=== PATIENT | female | born 1975 | race Caucasian/White ===

== ENCOUNTER 2016-10-16 07:16 | Observation (INO) | payer BC ==
[~2016-10-16] VITALS: Ht 170.2 cm; Wt 63.6 kg
--- NOTE | ~2016-10-16 | CON ---
PATIENT'S NAME: BACILIO HAYWOOD [facility] AGE: 41 Y [address] ROOM: [place] [address] LOCATION: [facility] [place] ADMIT DATE: 10/16/2016 Consultation DISCHARGE DATE: FAMILY PHYSICIAN: PHUONG TONG MD ATTENDING PHYSICIAN: PHUONG TONG DATE OF CONSULTATION: 10/16/2016 CHIEF COMPLAINT: Right flank pain. HISTORY OF PRESENT ILLNESS: The patient is a pleasant 41-year-old female, who presented with right flank pain to the emergency room. She ultimately underwent a CT scan and was found to have a 3.5 mm distal right ureteral stone approximately 1-2 cm from her ureterovesical junction. She was not doing well with pain control and was admitted by her primary care provider, Dr. Orellana for observation. She does report previous history of kidney stone having passed a kidney stone on her own on the right side approximately six years ago. She denies having to undergo any previous intervention for nephrolithiasis. She had denied any nausea or vomiting. Her white blood cell count was 7.5 and creatinine level 0.7. Her urinalysis was negative for nitrites and bacteria. She has been straining her urine since hospital admission and has not yet retrieved a stone yet. She feels like her pain has subsided this afternoon and is wondering if she has passed the stone yet. She denies any recent history of urinary tract infection or gross hematuria. The patient has no further questions or concerns at this time. PAST MEDICAL HISTORY: 1. History of nephrolithiasis. 2. Seasonal allergies. PAST SURGICAL HISTORY: Denies any significant prior surgery. FAMILY HISTORY: Denies any known family history of genitourinary abnormalities. SOCIAL HISTORY: The patient is and denies any tobacco use. ALLERGIES: NO KNOWN DRUG ALLERGIES. MEDICATIONS: PATIENT'S NAME: BACILIO HAYWOOD [facility] AGE: 41 Y [address] ROOM: [place] [address] LOCATION: [facility] [place] ADMIT DATE: 10/16/2016 Consultation DISCHARGE DATE: FAMILY PHYSICIAN: PHUONG TONG MD ATTENDING PHYSICIAN: PHUONG TONG See hospitalization medication reconciliation. REVIEW OF SYSTEMS: A full 10+ point review of systems was performed with pertinent positive and negative findings included in history of present illness. Of note, she had denied any vomiting. She denies any history of chest pain. She denies any history of asthma. She is not diabetic. She denies any fevers or chills. Again, all other systems were reviewed and are otherwise negative. PHYSICAL EXAMINATION: VITAL SIGNS: Temperature 98 degrees Fahrenheit, pulse 64, blood pressure 101/65, respiratory rate 16, oxygen saturation 99% on room air. CONSTITUTIONAL: The patient is in no acute distress and she is awake and oriented. HEENT: Extraocular muscles intact. Mucous membranes moist. No drainage per ears and nose. CARDIAC: Good peripheral perfusion. No tachycardia. RESPIRATORY: No audible wheezing. ABDOMEN: Soft, nontender, and nondistended. MUSCULOSKELETAL: Moves all extremities. NEUROLOGIC: No focal deficits noted. HEMATOLOGIC: No active sites of bruising or bleeding. PSYCHIATRIC: Normal affect and answers questions appropriately. IMAGING: I personally reviewed her CT scan images consistent with findings noted above in history of present illness. IMPRESSION: 1. 3.5 mm right distal ureteral stone. 2. Recurrent nephrolithiasis. PLAN: I had a long discussion today with the patient regarding my findings. We discussed her treatment options for the distal ureteral calculus including observation with trial of passage versus intervention with ureteroscopy, laser lithotripsy, and stent placement. At this point, the patient is doing well with pain control and would like to continue with a trial of stone passage and we will continue to have her strain her urine and she is able to pass the stone yet this evening, then from my standpoint, she would be fine for discharge home if her pain is well controlled and she is tolerating p.o. intake. We will give her a trial of oral intake this evening and she is fine to have dinner and we will check back in on her in the morning. If she continues to have episodes of severe pain, we would likely need to intervene tomorrow with ureteroscopy with possible laser lithotripsy and stent PATIENT'S NAME: BACILIO HAYWOOD [facility] AGE: 41 Y [address] ROOM: [place] [address] LOCATION: [facility] [place] ADMIT DATE: 10/16/2016 Consultation DISCHARGE DATE: FAMILY PHYSICIAN: PHUONG TONG MD ATTENDING PHYSICIAN: PHUONG TONG. I did briefly discuss the risks, benefits, indications, and alternatives of surgical intervention for her ureteral calculus. Her questions and concerns were addressed and she has no further at this time. NELSON LINARES MD GP/kari /[id number] d: 10/16/16 2313 t: 10/17/16 1029, CONSULTATION REPORT
--- NOTE | ~2016-10-16 | OR ---
PATIENT'S NAME: BACILIO HAYWOOD [facility] AGE: 41 Y [address] ROOM: [address] [address] [place] [facility] [place]: 10/16/2016 OR/Procedure Report DISCHARGE DATE: 10/17/2016 FAMILY PHYSICIAN: Robbie Olson MD ATTENDING PHYSICIAN: Nelson Rodriguez SURGEON: Nelson Rodriguez MD [employer]: DATE OF PROCEDURE: 10/17/2016 PREOPERATIVE DIAGNOSIS: Right distal ureteral calculus. POSTOPERATIVE DIAGNOSIS: Right distal ureteral calculus. OPERATIVE PROCEDURES: 1. Right ureteroscopy with laser lithotripsy. 3. Right ureteroscopic stone extraction. 4. Cystoscopy with placement of indwelling right ureteral stent. ANESTHESIA ADMINISTERED: General. INDICATIONS FOR PROCEDURE: The patient is a pleasant 41-year-old female, who had presented with right flank pain and underwent a CT scan, where she was found to have a 3.5-mm distal right ureteral stone approximately 1 cm to 2 cm from her ureterovesical junction. She was not doing well with pain control, and was admitted by her primary care provider for observation. The patient was discussed her treatment options and ultimately opted for intervention. DESCRIPTION OF OPERATION: The patient was brought back to the Operating Room, where she was placed on the OR table in the supine position. A surgical time- out was called where patient identification, surgical site, and procedure were then verified. We also did verify that the patient received an IV antibiotic prior to beginning the procedure. After undergoing successful administration of general anesthesia, the patient was then moved and placed in a low- lithotomy position, where her genital area was then prepped and draped in the usual sterile fashion. I then began by advancing a rigid cystoscope easily into the patient's urinary bladder. Her urethra was within normal limits. Upon entering her bladder, a full escobedo cystoscopy was performed, and her bladder was negative for any bladder tumors, cellules, or diverticula. Her ureteral orifices were noted to be in their orthotopic location. I then carefully advanced a sensor guidewire cannulating her right ureteral orifice, and advanced the wire up to her right renal pelvis. I then removed the cystoscope. Then, alongside the wire, I advanced a semi-rigid ureteroscope. I did come across the distal ureteral PATIENT'S NAME: BACILIO HAYWOOD [facility] AGE: 41 Y [address] ROOM: [address] [address] LOC[place]: [facility] [place]MIT DATE: 10/16/2016 OR/Procedure Report DISCHARGE DATE: 10/17/2016 FAMILY PHYSICIAN: Rbobie Olson MD ATTENDING PHYSICIAN: Nelson Rodriguez stone, which did appear to be too large to extract without fragmentation, and so I used the holmium laser fiber to carefully fragment the stone into smaller fragments. I did use the stone basket to retrieve several of the fragments, which were sent for a stone analysis. On final inspection, there was no evidence of any residual fragments nor was there any evidence of a ureteral injury. Then, over the wire, I advanced a 4.8-Djiboutian multi-length ureteral stent, deploying it and noting a good curl fluoroscopically in the patient's right renal collecting system, as well as a good curl visually in the patient's bladder. I then emptied the patient's bladder. POSTOPERATIVE CONDITION: The patient was then taken out of the lithotomy position, where she was then awoken from general anesthesia, transferred to the recovery bed, and transported to the Recovery Room in good condition. COMPLICATIONS: None. DRAINS: Indwelling 4.8-Djiboutian multi-length ureteral stent. FOLLOWUP PLAN: We will observe the patient today, and if her pain is well controlled, we will get her discharged home following the procedure. NELSON RODRIGUEZ MD GP/modl /[id number] d: 11/03/162131 t: 11/04/16 0806, OPERATIVE SUMMARY
--- NOTE | ~2016-10-16 | HP ---
PATIENT'S NAME: BACILIO HAYWOOD [facility] AGE: 41 Y [address] ROOM: [place] [address] LOCATION: [facility] [place] ADMIT DATE: 10/16/2016 History & Physical DISCHARGE DATE: FAMILY PHYSICIAN: PHUONG TONG MD ATTENDING PHYSICIAN: PHUONG TONG DATE OF SERVICE: CHIEF COMPLAINT: Right flank pain. HISTORY OF PRESENT ILLNESS: Bacilio Haywood presented to the emergency room today, the day of admission, complaining of right flank and right lower quadrant abdominal pain. She was evaluated there by Dr. Inés Caballero, ER physician. I am the patient's primary care physician in the outpatient arena. I was called by Dr. Caballero after the patient was evaluated in the emergency room and found to have, by physical exam, lab, urine, and CT scan of the abdomen and pelvis, a renal stone present in her distal right ureter. She required a fair amount of pain medicine just to get her pain under control. She is admitted to the hospital at this time for pain management, and we will obtain urologic consultation. I see the patient at approximately 12:35 p.m. the day of admission up on the floor, [address], and she is resting quietly with her pain better controlled than in the emergency room. She has had no nausea or vomiting. She does give a remote history of having a renal stone that she passed on her own in the past. At this point, I have told her we will keep her n.p.o. and give her IV fluids. She had Flomax in the emergency room. She will be seen later in the day by Dr. Seamus Rodriguez, urologist. CURRENT MEDICATIONS: See nurse's notes. ALLERGIES: SEE NURSE'S NOTES. PREVIOUS OPERATIONS: See old records. SOCIAL HISTORY: She does not smoke. FAMILY HISTORY: Negative for problems with general anesthesia or bleeding disorder. IMMUNIZATION STATUS: PATIENT'S NAME: BACILIO HAYWOOD [facility] AGE: 41 Y [address] ROOM: [place] [address] LOCATION: [facility] [place] ADMIT DATE: 10/16/2016 History & Physical DISCHARGE DATE: FAMILY PHYSICIAN: PHUONG TONG MD ATTENDING PHYSICIAN: PHUONG TONG Up-to-date for age. REVIEW OF SYSTEMS: HEENT: No fever. No chills. No weight loss. No sore throat. ENDOCRINE: She is not diabetic. No history of thyroid disease. LUNGS: No history of asthma. HEART: No history of chest pain, palpitations, heart murmur, or hypertension. GASTROINTESTINAL: She is somewhat nauseated. No history of active ulcer disease, gallbladder problems, or hepatitis. GENITOURINARY: As above. EXTREMITIES: Negative. NEUROLOGIC: Negative. PHYSICAL EXAMINATION: VITAL SIGNS. Noted. GENERAL: She is alert; lying in bed; oriented to person, place, and time; and competent. She does have more narcotic onboard, however. HEENT: Pupils reactive to light. TMs not visualized. Posterior pharynx clear. Mucous membranes are slightly dry. NECK: Unremarkable. LUNGS: Clear. HEART: No murmur, gallop, or rub. ABDOMEN: Benign. EXTREMITIES: Unremarkable. NEUROLOGIC: Grossly intact. PELVIC/RECTAL: Not done. ASSESSMENT: 1. Right flank and right lower quadrant abdominal pain secondary to obstructed distal right ureter secondary to renolithiasis. 2. Prior history of renal stone. PLAN: As above. MD MARCELLE MOYER/kari /[id number] D: 357 T: HISTORY & PHYSICAL
--- NOTE | ~2016-10-16 | ER ---
PATIENT'S NAME: BACILIO HAYWOOD [facility] AGE: 41 Y [address] ROOM: [place] [address] [place] [facility] [place]: 10/16/[place] ER/Outpatient Report DISCHARGE DATE: FAMILY PHYSICIAN: PHUONG TONG MD ATTENDING PHYSICIAN: PHUONG TONG TIME OF ARRIVAL: 0716 hours. TIME SEEN: 0737 hours. IDENTIFICATION: A 41-year-old female. CHIEF COMPLAINT: Right-sided flank pain. HISTORY OF PRESENT ILLNESS: The patient developed right-sided flank pain at about 05:00 a.m. this morning. She is extremely uncomfortable with constant sharp, stabbing pain associated with diaphoresis, nausea, and vomiting. She feels lightheaded from the pain. She has had previous kidney stone several years ago, that did pass on its own. She had no dysuria. No hematuria. She denies any chance of test, but is still having. ALLERGIES: NO KNOWN DRUG ALLERGIES. MEDICATIONS: No current medications. MEDICAL PROBLEMS: Previous history of kidney stones. SOCIAL HISTORY: The patient is , lives here in [place]. Tobacco use, denies. Alcohol use, denies. Drug use, denies. REVIEW OF SYSTEMS: All systems were reviewed and negative other than what is noted in the HPI. PHYSICAL EXAMINATION: VITAL SIGNS: Height 5 feet 7 inches and weight 64.7 kg. Blood pressure 126/76, pulse 82, respirations 18, temperature 98.3, and saturations 98% on PATIENT'S NAME: BACILIO HAYWOOD [facility] AGE: 41 Y [address] ROOM: [place] [address] [place] [facility] [place]: 10/16/2016 ER/Outpatient Report DISCHARGE DATE: FAMILY PHYSICIAN: PHUONG TONG MD ATTENDING PHYSICIAN: PHUONG TONG room air. GENERAL: A 41-year-old female, in obvious distress with 10/10 pain. HEENT: Head: Normocephalic atraumatic. Ears: TMs not visualized. Eyes: Pupils are equal and reactive to light and accommodation. Extraocular movements intact. Nose: Mucosa pink. No lesions or drainage. Mouth: No lesions. Pharynx benign. NECK: Supple. No lymphadenopathy. LUNGS: Clear to auscultation. HEART: Regular rate and rhythm. ABDOMEN: Soft, nondistended, and nontender. SKIN: Pale and diaphoretic. No skin rashes. EXTREMITIES: Motor strength 5/5 throughout. Sensation is intact to light touch. She has slight right-sided CVA tenderness. LABORATORY DATA: UA: Specific gravity 1.020, pH 6, rare white cells, 0 to 10 red cells, 10 to 20 epithelial cells, and negative bacteria. Urine hCG negative. Chemistry panel is all within normal limits. Creatinine 0.7. CBC also within normal limits. EMERGENCY DEPARTMENT COURSE: An IV was initiated. The patient was given 1 L of normal saline. Zofran 4 mg IV, Toradol 15 mg IV, fentanyl a total of 100 mcg IV, Amanda 5/325 p.o., and Dilaudid 0.5 mg IV. Her pain improved for a while, but then returned again 10/10. CT scan, stone protocol reveals a 3.5 mm obstructing right UVJ stone, mild hydronephrosis. She has indeterminate liver lesions. She has had previous CT scan elsewhere and Radiology was going to try and find her CAT scan from [place] in 2010. She did have an ultrasound of her abdomen in 2011 that was obtained for comparison. There were multiple liver lesions present on that ultrasound, felt most likely hemangiomas, given echogenicity characteristics. The lesions are almost certainly benign hemangiomas. If they can obtain the scan from [place] from 2010, they will compare and addend the report. IMPRESSION AND PLAN: 1. Kidney stone with persistent pain. The patient will be admitted per Dr. Tong for pain control and Urology consultation. 2. Liver lesions, most certainly benign hemangiomas, we are awaiting Radiology attempts to get prior CT from [place] from 2010 for comparison. Further recommendations based on that comparison. ALEKSANDR CHAUDHRY MD PATIENT'S NAME: BACILIO HAYWOOD [facility] AGE: 41 Y [address] ROOM: [place] [address] [place] [facility] [place]: 10/16/2016 ER/Outpatient Report DISCHARGE DATE: FAMILY PHYSICIAN: PHUONG TONG MD ATTENDING PHYSICIAN: PHUONG TONG CAR/modl /[id number] d: 10/16/16 1827 t: 10/19/16 0749, OUTPATIENT REPORT
[2016-10-16 07:36] LABS: BILIRUBIN URINE NEGATIVE (NEGATIVE); BLOOD URINE 10 /UL (NEGATIVE); COLOR URINE YELLOW (YELLOW); GLUCOSE URINE NEGATIVE (NEGATIVE); KETONE URINE NEGATIVE (NEGATIVE); LEUKOCYTES URINE 25 /UL (NEGATIVE); NITRITE URINE NEGATIVE (NEGATIVE); PROTEIN URINE 15 mg/dL (NEGATIVE); TURBIDITY URINE CLEAR (CLEAR); UROBILINOGEN URINE NORMAL (NORMAL)
[2016-10-16 07:45] LABS: BACTERIA URINE NEGATIVE (NEGATIVE); RBC URINE 0-2 #/HPF (NEGATIVE); WBC URINE RARE #/HPF (NEGATIVE)
[2016-10-16 07:50] LABS: BASOPHIL # 0.1 K/uL (0.0-0.2); BASOPHIL % 0.9 %; EOSINOPHIL # 0.2 K/uL (0.0-0.5); EOSINOPHIL % 2.4 %; HEMATOCRIT 36.8 % (33.0-46.0); HEMOGLOBIN 12.3 g/dL (10.0-15.0); IMMATURE GRANULOCYTE % 0.4 %; LYMPHOCYTE # 2.2 K/uL (0.8-4.0); LYMPHOCYTE % 29.8 %; MCH 29.4 pg (27.0-34.0); MCHC 33.4 gm/dL (32.0-36.5); MCV 87.8 fl (83.0-98.0); MONOCYTE # 0.6 K/uL (0.0-1.0); MONOCYTE % 7.9 %; MPV 10.2 fl (9.4-12.4); NEUTROPHIL # (ANC) 4.4 K/uL (1.8-7.8); NEUTROPHIL % 58.6 %; NRBC % 0 /100WBC (0-0.00); PLATELET COUNT 260 K/uL (150-450); RBC 4.19 M/uL (3.50-5.50); RDW-CV 13.1 % (11.9-14.6); WBC 7.5 K/uL (4.0-11.0)
[2016-10-16 08:06] LABS: ALBUMIN 3.8 gm/dL (3.5-5.0); ALK PHOS 49 IU/L (33-138); ALT 19 IU/L (12-78); ANION GAP 11.8 (10.0-19.0); AST 16 IU/L (10-40); BLOOD UREA NITROGEN 15 mg/dL (6-24); CALCIUM 8.5 mg/dL (8.5-10.5); CHLORIDE 107 mMol/L (96-110); CO2 24 mMol/L (22-32); CREATININE 0.7 mg/dL (0.5-1.1); ESTIMATED GFR (MDRD EQUATION) > 60; POTASSIUM 3.8 mMol/L (3.7-5.1); SODIUM 139 mMol/L (135-145); TOTAL BILIRUBIN 0.6 mg/dL (0.0-1.5); TOTAL PROTEIN 7.5 g/dL (6.0-8.4)
[2016-10-16] MEDS ORDERED: FLONASE 50 MCG/16 GM NOSE (14:06)
[2016-10-16] MEDS ORDERED: ZYRTEC10 MG PO (14:06)
--- NOTE | 2016-10-16 16:59 | NUR ---
Hx of right ankle fracture, kidney stone x1, vertigo. with 3 children residing in [place]. Right midback pain today. Instantly recognized kidney stone pain. Had Fentanyl, Carmel, Zofran, Toradol, and Dilaudid in ER. IV to RAC w/NS@125/hr. Had 1liter bolus in ER and 1liter bolus when arrived to floor. Gave Dilaudid x1 and Zofran x1 w/noted relief. NPO until Dr Rodriguez consults, then regular diet if ok. No home meds. Did Short Stay.
--- NOTE | 2016-10-17 04:53 | NUR ---
Significant Event: PATIENT IS ALERT AND ORIENTED X3 UP AT ARIAS IN ROOM AND HALLS TOLERATED. IV FLUIDS RUNNING AT 125. VS WNL ALL UREIN IS TO BE STRAINED AND STONE TO BE SENT TO LAB IF DISCOVERED IN URINE. DAUGHTER IS SLEEPING IN ROOM WITH PAITENT. NO COMPLAINTS OF PAIN OR DISCOMFORT THIS SHIFT PAITENT HAS BEEN NPO SINCE 0000. PATIENTS STATES SHE FEELS THAT STONE HAS PASSED. Follow up:
--- NOTE | 2016-10-17 13:08 | NUR ---
Significant Event: PT A&O x3. VSS, did get 2L bolus for BP in the 80's. PT to OR at 1100, back to floor at 1245. PT had cystoscopy with stents placed, string taped to thigh. IV patent to R)AC. Showered this AM. Void x1 post op, blood tinged. Ambulates with SBA. Minimal pain, states is just a little discomfort. Tolerating clear liquids. Follow up:
[2016-10-17] MEDS ORDERED: COLACE100 MG PO (16:54)
[2016-10-17] MEDS ORDERED: FLOMAX0.4 MG PO (16:55)
[2016-10-17] MEDS ORDERED: DITROPAN5 MG PO (16:56)
[2016-10-17] MEDS ORDERED: NORCO 5-325 TA1 EACH PO (16:57)
[2016-10-17] MEDS ORDERED: AZO URINARY P97.5 MG PO (16:59)
--- NOTE | 2016-10-17 18:04 | NUR ---
ASSUMED CARES AT 1400 FROM [facility]. PATIENT POST OP VITALS STABLE. UP AD ARIAS TOLERATING REGULAR DIET, NO PRNS GIVEN. DISCHARGED HOME WITH FAMILY. DENIES ANY NEEDS/QUESTIONS/CONCNERNS AT DISCHARGED
== END 2016-10-17 17:23 | disposition disaster alternative care site (69) ==
LOC: GMED 07:16 → GMSU 11:17
PROVIDERS: Family Medicine; ADMIT Family Medicine
PROC: 0TF68ZZ Fragmentation in Right Ureter, Via Natural or Artificial Opening Endoscopic (ICD-10-PCS; principal; 2016-10-17)
PROC: 0T768DZ Dilation of Right Ureter with Intraluminal Device, Via Natural or Artificial Opening Endoscopic (ICD-10-PCS; 2016-10-17)
DX: N13.2 Hydronephrosis with renal and ureteral calculous obstruction (principal); Z87.442 Personal history of urinary calculi
CPT/HCPCS: C1769; G0378; J0690; J1170; J1885; J2405; J3010; J7030